=== PATIENT | male | born 1980 | race Two or more races ===

== ENCOUNTER 2016-10-15 08:47 | Emergency (ER) | payer SELFPAY ==
[~2016-10-15] VITALS: Ht 170.2 cm; Wt 79.4 kg
--- NOTE | 2016-10-15 08:59 | NUR ---
ARRIVAL PATIENT ARRIVED TO [facility], C/O OF LEFT EXTREMITY SWELLING SINCE WEDNESDAY, PATIENT STATES HE WAS CUTTING DOWN TREES AT HOME AND THINKS HE GOT INTO SOME POISON DELORES, LESIONS NOTED TO RIGHT AND LEFT ARM WITH SWELLING TO LEFT ARM, RED IN COLOR, HERE FOR FURTHER EVAL BY [facility].
[2016-10-15] MEDS ORDERED: DECADRON IM STA (09:14)
--- NOTE | 2016-10-15 09:14 | ER.PDOC ---
General Chief Complaint: Extremities Stated Complaint: SKIN RASH AND SWELLING OF LEFT HAND Time seen by MD: 09:00 Source: patient History of Present Illness Initial Comments swelling and areas of blistering to both upper extremities. left >> than right , but both affected. has been using topical allergy cream. Timing/Duration: other (since wednesday, after clearing brush. thinks it might be poison sung) Severity: moderate Location: RUE, LUE Quality: itchy Identified Cause: possibly Prior symptoms/Treatment: No Similar symptoms previous Allergies: Coded Allergies: No Known Allergies (Unverified , 10/15/16) Home Meds No Active Prescriptions or Reported Meds Past Medical History Medical History: no pertinent history Surgical History: no surgical history Social History Smoking: non-smoker Alcohol Use: none Drug Use: none Constitutional: no symptoms reported EENTM: no symptoms reported Respiratory: no symptoms reported Cardiovascular: no symptoms reported Gastrointestinal: no symptoms reported Genitourinary: no symptoms reported Musculoskeletal: no symptoms reported Psychiatric/Neurological: no symptoms reported Physical Exam General Appearance: alert, no distress Skin: warm/dry Location: generalized Character: symmetric With: swelling, weeping, other (some areas of blistering on both UE.) Extremities: non-tender EENT: eyes nml inspection, lips/gums nml Respiratory: no resp. distress, breath sounds nml CVS: reg. rate & rhythm, heart sounds nml Progress Progress most c/w a contact dermatitis. involvement of both UE and lack of fever makes infections process very unlikely. will treat with steroids and recheck in 2 days. advised to follow up for blood pressure recheck. Departure Time of Disposition: 09:12 Disposition: HOME, SELF-CARE Impression: Primary Impression: Contact dermatitis Condition: Stable Referrals: PCP,UNKNOWN (PCP) PRIMARY CARE PROVIDER Scripts No Active Prescriptions or Reported Meds TAISHA JIMENEZ MD Oct 15, 2016 09:14
[2016-10-15] MEDS ORDERED: DECADRON ONE (09:16)
== END 2016-10-15 09:33 | disposition home or self-care (01) ==
LOC: ER 08:47
DX: L23.3 Allergic contact dermatitis due to drugs in contact with skin (principal)
CPT/HCPCS: 96372; 99283; J1100